=== PATIENT | male | born 1945 | race Caucasian/White ===

== ENCOUNTER 2017-08-09 01:10 | Outpatient (CLI) | payer MEDICARE | END 2017-08-09 01:11 | disposition home or self-care (01) | LOC: BICRAD 01:10 | PROVIDERS: ATTEND Family Medicine | DX: J40 Bronchitis, not specified as acute or chronic (principal) | CPT/HCPCS: 71020 ==

== ENCOUNTER 2018-04-17 13:37 | Outpatient (CLI) | payer MEDICARE ==
[~2018-04-17 13:37] MED LIST: Iopamidol 370 76% 100 ML VIAL ONE
== END 2018-04-17 13:38 | disposition home or self-care (01) ==
LOC: BICCT 13:37
PROVIDERS: ATTEND Family Medicine
DX: M54.9 Dorsalgia, unspecified (principal); G89.29 Other chronic pain; N28.9 Disorder of kidney and ureter, unspecified; K76.9 Liver disease, unspecified
CPT/HCPCS: 74178; 82565

== ENCOUNTER 2018-05-25 11:58 | Outpatient (CLI) | payer MEDICARE ==
[2018-05-25] MEDS ORDERED: Gadobenate Dimeglumine 529 MG/1 ML (20ML VIAL) ONE (12:39)
--- NOTE | 2018-05-25 16:47 | MRI ---
MRI THORACIC SPINE WITHOUT CONTRAST: Date: 05/25/18 HISTORY: Thoracic radiculopathy. Pain for 4 years. COMPARISON: None. TECHNIQUE: Thoracic spine MRI is performed without intravenous Gadolinium administration. Multisequential, multi planar imaging is performed. FINDINGS: There is a suggestion of cardiomegaly. Visualized mediastinal structures are otherwise unremarkable. Visualized lung parenchyma and upper solid organs are also unremarkable. T2 hyperintensity in the rig ht hepatic lobe corresponds to hypodensity noted on recent CT. Hepatic parenchymal cyst is favored. No retroperitoneal mass, lymphadenopathy, or hematoma. The thoracic cord has a normal size and signal intensity. No cord expansion. No cord malacia. Conus medullaris terminates at the inferior aspect of T12. Throughout the thoracic spine, the neural foramina are patent. There is no significant central canal stenosis. T2-T3: Minimal right paracentral disc bulge. IMPRESSION: Unremarkable noncontrast thoracic spine MRI. POS: [facility]
--- NOTE | 2018-05-25 17:05 | MRI ---
NONCONTRAST MRI CERVICAL SPINE: DATE: 08/25/2017. HISTORY: Cervical radiculopathy. The patient has had pain for 4 years. The patient complains of bilateral ar m and leg numbness and tingling. COMPARISON: None available. FINDINGS: The visualized base of the brain demonstrates a normal CT appearance. There is a rounded focus of in creased T2 weighted signal intensity in the occipital bone in the midline, probably attributable to a small arachnoid granulation. Cervicomedullary junction has a normal appearance. There are end plate degenerative changes at C5-C6 level. There is a small subcentimeter increased T2 and corresponding decreased T1 weighted signal intensity focus within the odontoid which extends to the margin of the odontoid and is likely related to cystic changes secondary to degenerative changes. There is otherwise normal signal intensity in the bone marrow. C2-3 level: There is a broad-based disk-osteophyte complex near the ventral subarachnoid space. The re is minimal uncinate process hypertrophy on the left. However, no significant neural foraminal jeffry rowing is present. C3-4 level: There is minimal disk-osteophyte complex. Facet hypertrophic changes are seen on the ri ght with mild uncinate process hypertrophy also present. These findings result in mild narrowing of the ventral subarachnoid space as well as mild to moderate right-sided neural foraminal narrowing and mild left-sided neural foraminal narrowing. C4-5 level: There is trace anterolisthesis of C4 on C5. There is loss of intervertebral disk height . There is a broad-based disk-osteophyte complex with uncinate process hypertrophy seen on the left. There are facet hypertrophic changes bilaterally, more exuberant on the left. Findings result in m ild generalized narrowing of the central spinal canal with mild to moderate right-sided neural forami nal narrowing. There is moderate to severe left-sided neural foraminal narrowing. C5-6 level: There is slight retrolisthesis of C5 on C6. There is loss of intervertebral disk height with end plate degenerative changes at this level. There is a broad-based disk-osteophyte complex r esulting moderate narrowing of the central spinal canal. There is flattening of the anterior aspect of the spinal cord, but normal signal intensity is present in the spinal cord at this level. There i s severe bilateral neural foraminal narrowing. C6-7 level: There is loss of intervertebral disk heights. There is a mild disk-osteophyte complex p resent with mild generalized narrowing of the central spinal canal. The Right neural foramen is springer nt, but there is moderate to severe left-sided neural foraminal narrowing primarily related to bony e ncroachment due to uncinate process hypertrophy. C7-T1 level: There is loss of intervertebral disk height. There is a mild broad-based disk-osteophy te complex present. This results in only slight effacement of the ventral aspect of the thecal sac. The neural foramina are patent at this level. T1-2 level: There is mild broad-based disk-osteophyte complex without significant narrowing of the c entral spinal canal. There are mild facet degenerative changes also present at this level. There is at least mild bilateral neural foraminal narrowing present. IMPRESSION: Multilevel degenerative changes in the cervical spine with findings greatest at the C4-5, C5-6, and C 6-7 levels. POS: [facility]
--- NOTE | 2018-05-25 18:19 | MRI ---
MRI OF THE LUMBAR SPINE WITH AND WITHOUT CONTRAST 05/25/18 COMPARISON: None. HISTORY: Lumbar radiculopathy TECHNIQUE: Multiplanar and multisequence MR imaging of the lumbar spine is provided with and without contrast. FINDINGS: The sagittal STIR imaging demonstrates no focal area of osseous marrow edema. Assuming five lumbar ty pe vertebral bodies, the conus medullaris terminates at the T12-L1 level. T12-L1: Disc space narrowing and disc desiccation and mild bilateral facet hypertrophy noted with no central canal or neural foraminal stenosis. L1-2: Disc space narrowing and disc desiccation, mild disc bulge and mild anterior osteophyte formati on. Mild bilateral facet hypertrophy. No significant central canal or neural foraminal stenosis. L2-3: Mild bilateral facet hypertrophy. Intervertebral disc height and signal intensity is grossly un remarkable. Mild bilateral facet hypertrophy with no significant central canal or neural foraminal st enosis. L3-4: Disc space narrowing, disc desiccation, and mild disc bulge. Mild bilateral facet hypertrophy. Mild neural foraminal stenosis noted on the left. No significant central canal stenosis. L4-5: Bilateral facet hypertrophy present. The patient appears status post left hemilaminectomy. Ther e is disc space narrowing, disc desiccation, disc bulge, and a central/right paracentral disc protrus ion. There is mild/moderate central canal stenosis and a moderate degree of right lateral recess sten osis. There is also moderate right and mild left neural foraminal stenosis. Just below the axial level of the disc protrusion at L4-5, there is a round lesion within the centra l aspect of the thecal sac measuring 5 mm. It demonstrates an oval configuration and is isointense on precontrast T1 as well as T2 weighted imaging. Postcontrast imaging demonstrates enhancement of this lesion. L5-S1: There is mild bilateral facet hypertrophy, right greater than left. Mild bilateral neural fora lukas stenosis. No significant central canal stenosis. The postcontrast imaging demonstrates no abnormal enhancement involving the intervertebral discs or t he imaged osseous structures. Review of the retroperitoneal structures demonstrate incompletely assessed bilateral T2 hyperintense renal lesions, likely on the basis of multiple cysts. IMPRESSION: 1. Postoperative and degenerative changes noted within the lumbar spine with the most significa nt degenerative disease noted at L4-5 as detailed above. 2. Oval 5 mm enhancing lesion within the thecal sac at the axial level of the L4-5 disc space. T his may represent a neoplastic process, which could include a small neurogenic tumor or a metastatic lesion in the proper clinical setting. Code T
== END 2018-05-25 11:59 | disposition home or self-care (01) ==
LOC: BICMRI 11:58
PROVIDERS: ATTEND Neurological Surgery
DX: M47.26 Other spondylosis with radiculopathy, lumbar region (principal); M51.16 Intervertebral disc disorders with radiculopathy, lumbar region; M50.121 Cervical disc disorder at C4-C5 level with radiculopathy; G95.9 Disease of spinal cord, unspecified
CPT/HCPCS: 72141; 72146; 72158; 82565; A9579

== ENCOUNTER 2018-06-15 10:15 | Outpatient (CLI) | payer MEDICARE ==
--- NOTE | 2018-06-15 12:56 | RAD ---
LUMBAR SPINE RADIOGRAPHS THREE VIEWS WITH FLEXION AND EXTENSION: HISTORY: Lumbar radiculopathy, M54.16. COMPARISON: MRI from 05/25/2018. FINDINGS: There is moderate narrowing at the L4-L5 and L5-S1 disk spaces. There is also narrowing within the s pinous processes of L3-L5. There is retrolisthesis of L1/L2, in the neutral position, approximately 4 mm, without significant translation with flexion or extension. IMPRESSION: 1. Degenerative changes. 2. No significant translation with flexion or extension. POS: OFF
--- NOTE | 2018-06-15 13:36 | CT ---
CT OF THE LUMBAR SPINE: Date: 06-15-18 Comparison: None History: Back pain, right lower extremity radiculopathy. Technique: Serial axial CT imaging is obtained at 3 mm intervals through the lumbar spine without con trast. Coronal and sagittal reformatted imaging obtained. FINDINGS: There is mild scattered atherosclerotic calcification of the abdominal aorta and its branches, incomp letely assessed on this examination. There is moderate degenerative change involving bilateral sacroiliac joint. Evaluation for central canal and/or neural foraminal stenosis is limited on routine CT examination. T12-L1: There is no osseous cause of significant central canal or neural foraminal stenosis. L1-2: There is disc space narrowing. There is mild anterior osteophyte formation. There is a small di sc bulge with no obvious significant central canal stenosis. Mild bilateral facet hypertrophy noted w ith mild bilateral neural foraminal stenosis. L2-3: There is mild disc bulge. There is mild bilateral facet hypertrophy. Mild bilateral neural fora lukas stenosis suspected. L3-4: Mild facet hypertrophy and hypertrophy of the ligamentum flavum noted bilaterally. Mild disc bu lge is present. Mild bilateral neural foraminal stenosis and mild central canal stenosis suspectd. L4-5: There is a vacuum disc. There is disc bulge with a superimposed central/right paracentral disc herniation which leads to significant right lateral recess stenosis/right sided central canal stenosi s. There is facet hypertrophy with mild bilateral neural foraminal stenosis. L5-S1: Mild bilateral facet hypertrophy. Mild disc bulge. No significant central canal or neural fora lukas stenosis. There is no worrisome lytic or blastic bone lesion. IMPRESSION: Multilevel degenerative change noted within the lumbar spine. The most significant finding is at L4-5 where a central/right paracentral disc herniation is present with significant right lateral recess s tenosis. This is better assessed on the 05-25-18 lumbar spine MRI. POS: JS
== END 2018-06-15 10:16 | disposition home or self-care (01) ==
LOC: TBSIIMAG 10:15
PROVIDERS: ATTEND Neurological Surgery
DX: M51.16 Intervertebral disc disorders with radiculopathy, lumbar region (principal); M47.26 Other spondylosis with radiculopathy, lumbar region; M48.061 Spinal stenosis, lumbar region without neurogenic claudication
CPT/HCPCS: 72100; 72131

== ENCOUNTER 2018-08-02 11:15 | Inpatient (IN) | payer MEDICARE ==
[2018-08-02 11:32] VITALS: BMI 26.8
--- NOTE | 2018-08-02 21:42 | HP ---
HISTORY OF PRESENT ILLNESS: This is a 73-year-old male, who reports to our office for both cerebral and lumbar pain. The patient is referred to us by Dr. Hawk for cervical stenosis. The patient has history of lumbar back pain and surgery [place] [address] Santana. The patient states that he has been unable to stand for more than 5 minutes without having any excruciating back pain, which would require him to sit down. Most of his pain is in his low back, crosses his belt line. The pain in his neck radiates between his shoulder blades and he states that he has numbness and tingling in all 4 extremities, left upper and lower extremities are worse than the right. The patient states that he has issues with imbalance, he feels like he starts leaning in one direction, his body will just start going and he worries about falling. The patient states that his left leg will just "go out" on him and he has to use a walker to ambulate. The patient is currently lying on the table in our office. He is visibly distressed, out of breath due to pain. When asked to sit up to do an exam, it is very difficult and he needs a lot of help, however, as soon as asked to do strength testing, it was too painful and he would lie down again. REVIEW OF SYSTEMS: A 10-point review of systems has been completed and is negative other than stated in the above HPI. PAST MEDICAL HISTORY: Allergies, tumor, chronic pain, depression, kidney problems, and GERD. PAST SURGICAL HISTORY: Lumbar surgery in [address] Santana bypass in 2012, sinus surgery in 2000. FAMILY HISTORY: Father is , diagnosed with cancer. Mother is , diagnosed with cancer. SOCIAL HISTORY: The patient is a nonsmoker and . MEDICATIONS: 1. Prilosec. 2. Oxycodone. 3. Neurontin. 4. Morphine. ALLERGIES: NO KNOWN DRUG ALLERGIES. PHYSICAL EXAMINATION: HEENT: Head is normocephalic. Extraocular movements are intact. Pupils are equal. NECK: Normal. Soft and supple. No masses are noted. Range of motion is intact; tender to palpate C5 to sacrum. NEUROLOGIC: Awake, alert, and oriented x3. Memory, attention, and fund of knowledge and language are normal. Cranial nerves are normal, grossly intact. EXTREMITIES: Upper extremities does not disclose any focal deep tendon reflex asymmetry. Moving upper extremities, the patient is unwilling to sit up for his exam. 5/5 trouble locater strength, biceps, triceps, and deltoids. Lower extremities; wide-based shuffle gait, using a walker. Able to move both legs. IMAGING: C4-5 foraminal narrowing, left C5-6 central stenosis, C6-7 left foraminal disease, lumbar spine recurrent herniated nucleus pulposus right, left L4-5 with compression of neural elements. Small area of enhancement at the level of intradural disk, hard to make out pars fracture. ASSESSMENT AND PLAN: Herniated nucleus pulposus with radiculopathy in lumbar region. The patient prefers to address the low back first. We have discussed laminectomy and transforaminal lumbar interbody and discussed the risks and benefits of surgery, which include, but are not limited to bleeding, infection, CSF leak, nerve damage, weakness, incontinence, cauda equina injury, paralysis, ventilator dependence, wheel chair dependence, loss of vision, hardware displacement, cardiopulmonary complications of anesthesia or . Long-term complications were discussed included, but were not limited to the degradation of the surrounding disks and the need for further surgery. The patient states that he understands the risks and is willing to proceed move forward with surgery. Job ID: [id number]
[2018-08-07] MEDS ORDERED: CEFAZOLIN 2 GM/50 ML BAG ONE (07:33)
[2018-08-07] MEDS ORDERED: Morphine 4 MG/ML VIAL ONE (08:42)
[2018-08-07] MEDS ORDERED: Thrombin 5000 UNITS/5 ML VIAL ONE (10:32)
[2018-08-07] MEDS ORDERED: Bupivacaine HCl 0.5%/Epinephrine 1:200,000/PF 30 ml Vial ONE (10:32)
[2018-08-07] MEDS ORDERED: Sodium Chloride 0.9% 30 ML ONE (10:32)
[2018-08-07] MEDS ORDERED: Fentanyl 100 MCG/2 ML VIAL ONE ×4 (11:16→18:34)
[2018-08-07] MEDS ORDERED: KETAMINE 100 MG/ML (5ML VIAL) ONE (11:39)
[2018-08-07] MEDS ORDERED: Albumin 5% 0 ML ONE (12:52)
[2018-08-07] MEDS ORDERED: Phenylephrine HCL 10 MG/ML VIAL ONE (12:52)
[2018-08-07] MEDS ORDERED: Acetaminophen/Codeine 30-300mg Tablet PO PRN ×2 (15:48)
[2018-08-07] MEDS ORDERED: Morphine 2 MG/ML SYRINGE SLOW IVP PRN (15:48)
[2018-08-07] MEDS ORDERED: Promethazine HCl 25 MG/ML VIAL IM PRN ×2 (15:48→15:58)
[2018-08-07] MEDS ORDERED: Mag-Al 1200 mg/1200 mg/30 ML UDCUP PO PRN (15:48)
[2018-08-07] MEDS ORDERED: diphenhydrAMINE 50 MG/ML VIAL IVP PRN (15:48)
[2018-08-07] MEDS ORDERED: Milk Of Magnesia 30 ML UDCUP PO PRN (15:48)
[2018-08-07] MEDS ORDERED: Ondansetron PF 4 MG/2 ML Vial IVP PRN (15:48)
[2018-08-07] MEDS ORDERED: Bisacodyl 10 MG SUPP PR PRN (15:48)
[2018-08-07] MEDS ORDERED: Acetaminophen 325 MG TAB PO PRN (15:48)
[2018-08-07] MEDS ORDERED: diphenhydrAMINE 25 MG CAP PO PRN (15:48)
[2018-08-07] MEDS ORDERED: Acetaminophen 650 MG Suppository PR PRN (15:48)
[2018-08-07] MEDS ORDERED: Non-Formulary Item 1 EACH (Oxycodone Hcl/Acetaminophen [Oxycodone-Acetaminophen 10-325] 1 PO PRN (15:52)
[2018-08-07] MEDS ORDERED: Polyethylene Glycol 3350 17 GM Packet PO PRN (15:52)
[2018-08-07] MEDS ORDERED: Morphine ER 15 MG TAB PO PRN (15:52)
[2018-08-07] MEDS ORDERED: Promethazine HCl 25 MG/ML VIAL SLOW IVP PRN (15:58)
[2018-08-07] MEDS ORDERED: Ondansetron HCl/PF 4 MG/2 ML Vial IVP PRN (15:58)
[2018-08-07] MEDS ORDERED: CEFAZOLIN/Water 2 GM/20 ML SYRINGE SLOW IVP SCH (16:00)
[2018-08-07] MEDS ORDERED: oxyCODONE/Acetaminophen 5 mg/325 mg Tablet PO PRN (17:18)
[2018-08-07] MEDS ORDERED: CEFAZOLIN 2 GM/50 ML-DEXTROSE 2 GM in Premix Bag 1 BAG IVPB SCH (18:00)
[2018-08-07] MEDS: Morphine 4 MG/ML VIAL SLOW IVP PRN ×4 (19:55→22:59)
[2018-08-07] MEDS ORDERED: Lidocaine 1% PF 5 ML VIAL ONE (19:59)
[2018-08-07] MEDS ORDERED: ePHEDrine/0.9% NaCl/PF SYRINGE 50 mg/10 ml ONE (19:59)
[2018-08-07] MEDS ORDERED: Dexamethasone 20 MG/5 ML VIAL ONE (19:59)
[2018-08-07] MEDS ORDERED: CEFAZOLIN 1 GM VIAL ONE (19:59)
[2018-08-07] MEDS ORDERED: PROPOFOL 200 MG/20 ML VIAL ONE (19:59)
[2018-08-07] MEDS ORDERED: Sterile Water 10 ML VIAL ONE (19:59)
[2018-08-07] MEDS ORDERED: PHENYLEPHRINE-NS 100 MCG/ML 10 ML SYRINGE ONE (19:59)
[2018-08-07] MEDS ORDERED: Ondansetron PF 4 MG/2 ML Vial ONE (19:59)
[2018-08-07] MEDS: Promethazine 25 MG TAB PO PRN (20:03)
[2018-08-07] MEDS: Sodium Chloride 0.9% 1,000 ML IV SCH (20:04)
[2018-08-07] MEDS: tiZANidine HCl 4 MG TAB PO PRN (20:52)
--- NOTE | 2018-08-07 22:04 | OP ---
DATE OF PROCEDURE: 08/07/2018 SEED SERVICE ADVISOR: Molly Duran PA-C PREOPERATIVE INDICATION: Treat pain and prevent neurological deterioration. 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 OPERATIVE PROCEDURE: Reopening lumbar incision, re-exploration of intervertebral disk via laminectomy, medial facetectomy, foraminotomy and microdiskectomy, operating microscope, transforaminal lumbar interbody arthrodesis, placement of intervertebral biomechanical device, posterior lateral arthrodesis, pedicle screw and tayler instrumentation, local morselized autograft, morselized allograft at L4-L5. PREOPERATIVE MEDICATION: Ancef 2 g IV. DRAINS: Zero. DRAIN TYPE: None. DESCRIPTION OF PROCEDURE: The patient was brought to the operating room. General endotracheal anesthesia was induced. The patient was positioned prone on the operating table and a lateral fluoro radiograph was used to confirm the previous incision was centered over the L4-L5 segment of the lumbosacral spine. The lumbar skin was sterilely prepped and draped. We opened with a 10 blade knife and controlled bleeding with bipolar and monopolar cautery. We used monopolar cautery to dissect through scar tissue to the thoracodorsal fascia. We incised the fascia in the midline and reflected the paraspinal muscles off the spinous process and laminae of L3, L4, L5. A self-retaining retractor was placed. A lateral fluoro radiograph confirmed the levels upon which we were operating. We then carried our dissection over the facet joints at L3-L4 and L4-L5. We then identified the transverse processes of L4 and L5 bilaterally. We irrigated once again with bacitracin irrigation. We turned our attention to decompression. We carefully used Adson and Kerrison rongeurs to fashion a laminectomy at L4-L5. We widened our laminectomy defect by dissecting scar tissue off the lateral confines of the spinal canal. The operative microscope was brought into the field. Under microscopic magnification using microsurgical techniques, we carefully dissected scar tissue away from the lateral aspect of the dura and the L5 nerve roots bilaterally. We followed the nerve roots out the L5 foramina and performed foraminotomies over them. Likewise, we performed foraminotomies over the exiting L4 nerve roots. In the ventral epidural space to the right of the midline, there was intervertebral disk protrusion, which was stretching the L5 nerve root. We gently retracted the nerve root medially and incised the lateral portion of the disk protrusion, removed multiple fragments of loose disk under pressure. With the diskectomy done, the dura was no longer stretched and the nerve roots were loose. We then turned our attention to arthrodesis. We performed a complete facetectomy on the left L4-L5 through our facetectomy window. We entered the intervertebral disk space through the foramen. We incised the disk space and removed disk contents using curettes and rongeurs. Using a series of enlarging bone rasps, we measured the height of the interspace to 11 mm. We prepared the endplates for grafting with curettes and then brought in an 11-mm PEEK intervertebral graft into the field. The laminectomy bone was carefully morselized on the back table after all soft tissue was removed. The morselized bone was added to demineralized bone matrix and this fusion substrate was packed into our PEEK graft. The PEEK graft was advanced into the interspace under radiographic guidance to the appropriate depth and then we turned our attention to pedicle screw instrumentation. We removed the operative microscope. Using bony anatomic landmarks, palpation of the medial portion of the pedicles, a lateral fluoro radiograph as our guide, which was entry points for our pedicle screws. We drilled out the entry points and then used a bone awl to create trajectories through the pedicles. We tapped each trajectory with a threaded tap and then probed them. We found all four trajectories completely encased in bone. We placed 6.5 mm diameter pedicle screws at L4 and L5 bilaterally. We took a 360-degree image set with our isocentric C-arm. This confirmed adequate positioning of our pedicle screw instrumentation. We then brought the rods into the field. We lowered the rods into the screw heads and tightened caps down over the rods. We used gentle compression across the interspace before final tightening. Using a torque and counter-torque mechanism, we ensured adequate tightness. We irrigated once again with bacitracin irrigation. We decorticated the transverse processes of L4 and L5 bilaterally and left demineralized bone matrix and morcellized autograft as our posterior lateral fusion substrate over the decorticated bone. We then irrigated the center of the wound once again. We treated the wound with vancomycin powder. We infused local anesthetic in the paraspinal muscles. We closed the wound in anatomical layers and we applied the sterile dressing. This was a clean case with no contamination. Job ID: [id number]
[2018-08-07] MEDS: CEFAZOLIN 2 GM/50 ML-DEXTROSE 2 GM in Premix Bag 1 BAG IVPB SCH (23:03)
[2018-08-08] MEDS: Morphine 4 MG/ML VIAL SLOW IVP PRN ×2 (00:01→02:04)
[2018-08-08] MEDS: Promethazine 25 MG TAB PO PRN (00:02)
[2018-08-08] MEDS: Sodium Chloride 0.9% 1,000 ML IV SCH ×2 (02:06→18:26)
[2018-08-08] MEDS ORDERED: Zolpidem Tartrate 5 MG TAB PO PRN (02:58)
[2018-08-08] MEDS ORDERED: diphenhydrAMINE 25 MG CAP PO PRN (02:58)
[2018-08-08] MEDS ORDERED: Naloxone HCl 0.4 mg/ml Vial IV PRN (02:58)
[2018-08-08] MEDS ORDERED: Promethazine HCl 25 MG/ML VIAL IM PRN (02:58)
[2018-08-08] MEDS ORDERED: diphenhydrAMINE 50 MG/ML VIAL IM PRN (02:58)
[2018-08-08] MEDS ORDERED: Ondansetron PF 4 MG/2 ML Vial IVP PRN (02:58)
[2018-08-08] MEDS ORDERED: Morphine CADD 1 MG/ML CADD IVPB PRN (02:58)
[2018-08-08] MEDS ORDERED: diphenhydrAMINE 50 MG/ML VIAL IVP PRN (02:58)
[2018-08-08] MEDS ORDERED: Communication Order-Pharmacy FS SCH (03:00)
[2018-08-08] MEDS: tiZANidine HCl 4 MG TAB PO PRN ×3 (03:09→19:31)
[2018-08-08] MEDS: CEFAZOLIN 2 GM/50 ML-DEXTROSE 2 GM in Premix Bag 1 BAG IVPB SCH (06:20)
[2018-08-08] MEDS: Tamsulosin HCl 0.4 MG CAP PO SCH (06:20)
--- NOTE | 2018-08-08 06:50 | PRG ---
DATE OF SERVICE: 08/08/2018 NEUROSURGERY PROGRESS NOTE SUBJECTIVE: I saw Mr. Guajardo in his hospital room this morning. Complains of soreness at the operative site and neck pain. He has known cervical spondylosis. Overnight, the vitals have been stable. There is no fever recorded. His neurological function in lower extremities is quite good. The bandage is dry and intact without drainage. Plan for Mr. Guajardo is to begin aggressive mobilization today. Pain control will seem to be his primary issue, and I believe as he moves more with the muscle spasm will improve with time and with activity. Once he is able to get in and out of bed, eat, toilet himself, dress, and he is safe for activities of daily living, then he can be discharged. This may not happen today. Job ID: [id number]
[2018-08-08] MEDS ORDERED: Non-Formulary Item 1 EACH (Omeprazole [Omeprazole] 40 MG) PO SCH (09:00)
[2018-08-08] MEDS: Metoprolol Tartrate 25 MG TAB PO SCH ×2 (10:12→10:26)
[2018-08-08] MEDS: Gabapentin 300 MG CAP PO PRN (16:37)
[2018-08-09] MEDS: tiZANidine HCl 4 MG TAB PO PRN ×2 (03:18→12:19)
[2018-08-09] MEDS: Tamsulosin HCl 0.4 MG CAP PO SCH (05:03)
--- NOTE | 2018-08-09 08:03 | PRG ---
DATE OF SERVICE: 08/09/2018 NEUROSURGERY PROGRESS NOTE I saw Mr. Guajardo this morning. Nursing reports there is a small amount of drainage around his bandage. He tells me that he is in pain from his operation. He has muscle spasm when he tries to move. He was out of bed 4 to 5 times for the bathroom yesterday and 1 time to walk in the halls with Physical Therapy. Overnight, the recorded vital signs are stable with the exception of slightly low oxygen saturation on room air. 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 On examination, he has good neurological function in lower extremities. Plan for Mr. Guajardo is to evaluate by inpatient rehabilitation. His is unable to care for him at home and he is requiring significant narcotic administration, which is not surprising given his chronic use thereof. Aggressive mobilization will help in the long run. Bandages can be changed as needed when it saturated. Job ID: [id number]
[2018-08-09] MEDS: Gabapentin 300 MG CAP PO PRN (08:45)
[2018-08-09] MEDS: Metoprolol Tartrate 25 MG TAB PO SCH (08:45)
[2018-08-09] MEDS: Sodium Chloride 0.9% 1,000 ML IV SCH (08:50)
[2018-08-09 16:13] VITALS: BP 118/70; TEMP 98.4
== END 2018-08-09 15:20 | DRG 460 ==
LOC: SURG A 08-07 06:53 → T4-A 08-07 17:29
PROVIDERS: ADMIT Neurological Surgery; ATTEND Neurological Surgery
PROC: 0SG00AJ Fusion of Lumbar Vertebral Joint with Interbody Fusion Device, Posterior Approach, Anterior Column, Open Approach (ICD-10-PCS; principal; 2018-08-07)
PROC: 01NB0ZZ Release Lumbar Nerve, Open Approach (ICD-10-PCS; 2018-08-07)
PROC: 0SB20ZZ Excision of Lumbar Vertebral Disc, Open Approach (ICD-10-PCS; 2018-08-07)
DX: M51.16 Intervertebral disc disorders with radiculopathy, lumbar region (principal); G89.29 Other chronic pain; F32.9 Major depressive disorder, single episode, unspecified; K21.9 Gastro-esophageal reflux disease without esophagitis; Z80.9 Family history of malignant neoplasm, unspecified
CPT/HCPCS: 76001; 90471; 90662; A4216; C1713; C1768; G0008; G8978-GP-CL; G8979-GP-CI; G8987-GO-CL; G8988-GO-CI; J0670; J0690; J1100; J2001; J2270; J2274; J2370; J2405; J2550; J2704; J3010; J3370; J3490; P9045

== ENCOUNTER 2018-08-02 11:25 | Outpatient (CLI) | payer MEDICARE ==
[2018-08-02 13:00] LABS: Hemoglobin 14.4 g/dL (14.0-18.0); Mean Corpuscular HGB CONC 32.7 g/dL (32.0-36.0); Mean Corpuscular Hemoglobin 30.3 pg (27.0-31.0); Mean Corpuscular Volume 92.6 fL (78.0-98.0); Mean Platelet Volume 5.8 fL (7.4-10.4); Platelet Count 370 thou/uL (130-400); RBC Distribution Width 11.8 % (11.5-14.5); Red Blood Cell (RBC) Count 4.76 mill/uL (4.70-6.10); White Blood Cell (WBC) Count 9.9 thou/uL (4.8-10.8)
[2018-08-02 13:05] LABS: Anion Gap 13 mmol/L (10-20); BUN (Urea Nitrogen) 14 mg/dL (8.4-25.7); Calc. Creatinine Clearance 0 mL/min (70-130); Calcium 9.6 mg/dL (7.8-10.44); Carbon Dioxide 26 mmol/L (23-31); Chloride 103 mmol/L (98-107); Estimated GFR-MDRD 67; Glucose 96 mg/dL (83-110); Potassium 4.2 mmol/L (3.5-5.1); Sodium 138 mmol/L (136-145)
[2018-08-02 13:30] LABS: INR-International Normal Ratio 0.9; PTT 28.9 SEC (22.9-36.1); Prothrombin Time 12.5 SEC (12.0-14.7)
== END 2018-08-02 11:26 | disposition home or self-care (01) ==
LOC: LABBT 11:25
PROVIDERS: ATTEND Neurological Surgery
DX: Z01.812 Encounter for preprocedural laboratory examination (principal); M51.16 Intervertebral disc disorders with radiculopathy, lumbar region
CPT/HCPCS: 80048; 85027; 85610; 85730

== ENCOUNTER 2018-10-02 12:39 | Outpatient (CLI) | payer MEDICARE ==
--- NOTE | 2018-10-02 14:57 | RAD ---
LUMBAR SPINE TWO VIEWS: History: M43.16, lumbar spondylosis. Comparison: 06-15-18 FINDINGS: In the interim there has been posterior spinal fusion at L4-5 with disectomy changes. There laminecto my changes at this site with transpedicular screws. The SI joints are unremarkable. No acute fracture or malalignment. IMPRESSION: Satisfactory post-operative appearance. POS: [facility]
== END 2018-10-02 12:40 | disposition home or self-care (01) ==
LOC: TBSIIMAG 12:39
PROVIDERS: ATTEND Neurological Surgery
DX: M47.816 Spondylosis without myelopathy or radiculopathy, lumbar region (principal); Z98.890 Other specified postprocedural states
CPT/HCPCS: 72100